=== PATIENT | female | born 1980 | race African-American/Black ===

== ENCOUNTER 2018-03-04 08:21 | Emergency (ER) | payer MEDICAID ==
[~2018-03-04] VITALS: Ht 167.6 cm; Wt 81.6 kg
[2018-03-04 08:26] VITALS: BP 159/93
== END 2018-03-04 09:15 | disposition home or self-care (01) ==
LOC: ER 08:29
DX: S51.852A Open bite of left forearm, initial encounter (principal); S51.851A Open bite of right forearm, initial encounter; S81.852A Open bite, left lower leg, initial encounter; L25.9 Unspecified contact dermatitis, unspecified cause; W57.XXXA Bitten or stung by nonvenomous insect and other nonvenomous arthropods, initial encounter; Y93.89 Activity, other specified; Y99.8 Other external cause status; Y92.89 Other specified places as the place of occurrence of the external cause